=== PATIENT | female | born 1980 | race Caucasian/White ===

== ENCOUNTER → 2018-04-26 11:06 | Outpatient (CLI) | payer OTHER, SELFPAY ==
[2018-04-26 13:02] LABS: Alanine Aminotransferase 35 IU/L (9-52); Albumin 4.8 g/dL (3.5-5.0); Albumin Globulin Ratio 1.6 (1.0-2.8); Alkaline Phosphatase 42 U/L (38-126); Aspartate Aminotransferase 28 IU/L (14-36); BUN Creatinine Ratio 18.8 (6-22); Bilirubin Total 0.5 mg/dL (0.2-1.3); Blood Urea Nitrogen 15 mg/dL (7-17); Calcium 9.9 mg/dL (8.4-10.2); Carbon Dioxide 26 mmol/L (22-32); Chloride 101 mmol/L (98-107); Cholesterol 240 mg/dL (140-199); Estimated Glomerular Filt Rate > 60.0 mL/min (>60); Glucose 82 mg/dL (70-100); HDL Cholesterol 61 mg/dL (40-60); HEMOLYSIS < 15 (0-50); LDL Cholesterol Calculated 153 mg/dL (<100); Potassium 4.8 mmol/L (3.4-5.1); Sodium 142 mmol/L (137-145); Total Protein 7.8 g/dL (6.3-8.2); Triglycerides 129 mg/dL (35-150)
[2018-04-26 13:51] LABS: Creatinine Urine Random 32.6 mg/dL
[2018-04-26 13:57] LABS: Microalbumi Creatinin Ratio Ur 18.4 ug/mg CR (<30); Microalbumin Urine Random < 0.6 mg/dL (0-1.6)
== END ==
PROVIDERS: Family Provider Physician Assistant; PCP Physician Assistant; Visit Provider Physician Assistant
DX: I10 Essential (primary) hypertension (principal)
CPT/HCPCS: 36415; 80053; 80061; 82043; 82570

== ENCOUNTER → 2018-05-24 10:12 | Outpatient (CLI) | payer OTHER, SELFPAY ==
--- NOTE | 2018-05-24 10:15 | DI.RAD.S_ITS ---
PROCEDURE: XR TOE LT MIN 2V INDICATIONS: Left 5th toe pain and swelling TECHNIQUE: 3 views of the left fifth toe(s) acquired. COMPARISON: None. FINDINGS: Bones: No fractures or dislocations. No suspicious bony lesions. Soft tissues: A subtle, focal radiopacity is present within the soft tissues of the left fifth digit. It is unclear whether this may represent a small foreign body. IMPRESSION: Questionable subtle focal radiopacity within the soft tissues of the left fifth digit which may represent a retained foreign body. Dictated by: Mei Amor M.D. on 05/24/2018 at 10:31 Approved by: Mei Amor M.D. on 05/24/2018 at 10:32
== END ==
PROVIDERS: PCP Physician Assistant; Visit Provider Physician Assistant
DX: M79.675 Pain in left toe(s) (principal)
CPT/HCPCS: 73660

== ENCOUNTER 2018-05-24 23:16 | Emergency (ER) | payer OTHER, SELFPAY ==
[2018-05-24 23:21] VITALS: BP 141/97; PULSE 108; RESP 16; TEMP 36.4; O2SAT 100; BMI 29.2
--- NOTE | 2018-05-25 00:18 | ED_ITS ---
HPI - Extremity Injury (Lower) General Chief Complaint: Extremity Injury, Lower Stated Complaint: left foot infection line going up leg Time Seen by Provider: 05/24/18 23:56 Source: patient and old records reviewed Mode of arrival: ambulatory Limitations: no limitations History of Present Illness HPI Narrative: Patient is a 37-year-old female who presents with left toe infection and redness. She said she stepped on a very tiny piece of glass 2 nights ago that was removed by the walk-in clinic today and she was started on Keflex. She has had 2 doses of Keflex as she had some streaking up her foot however the streaking has quickly progressed to mid lower leg. She has had low- grade fever. She says that he got all the glass out. Related Data Home Medications Medication Instructions Recorded Confirmed Lamotrigine See Label Instructions .ROUTE 04/25/18 05/24/18 .COMPLEX Previous Rx's Medication Instructions Recorded [Massage Therapy] ea QMONTH #1 03/01/17 tramadol 50 - 100 mg PO Q6HP PRN #60 tab 03/05/17 gabapentin 300 mg capsule See Label Instructions .ROUTE 01/02/18 .COMPLEX #90 cap cyclobenzaprine 10 mg PO HSP PRN #30 tab 03/22/18 lorazepam 0.5 mg tablet 0.5 mg PO QDAY PRN #10 tab 04/16/18 methylphenidate ER 18 mg 18 mg PO QAM #30 tab 04/16/18 tablet,extended release 24 hr methylphenidate ER 18 mg 18 mg PO QAM #30 tab 04/16/18 tablet,extended release 24 hr methylphenidate ER 18 mg 18 mg PO QDAY #30 tab 04/16/18 tablet,extended release 24 hr hydrochlorothiazide 12.5 mg tablet 12.5 mg PO DAILY #30 tab 04/25/18 lisinopril 5 mg tablet 5 mg PO DAILY #30 tab 04/25/18 norethindrone ac-eth estradiol 1 tab PO Q DAY #1 pac 04/29/18 [Loestrin 1.5/ (21)] lamotrigine 100 mg tablet 150 mg PO DAILY #45 tab 05/03/18 atorvastatin 20 mg tablet 20 mg PO BEDTIME #45 tab 05/05/18 trazodone 100 mg tablet 50 - 100 mg PO HS #30 tab 09/24/18 cephalexin 500 mg capsule 500 mg PO QID 7 Days #28 cap 05/24/18 clindamycin HCl 300 mg PO QID #28 cap 05/25/18 Allergies Allergy/AdvReac Type Severity Reaction Status Date / Time etonogestrel [From NUVARING] AdvReac Severe suicidal Verified 05/24/18 23:21 thoughts clarithromycin [From BIAXIN] AdvReac Intermediate vomiting Verified 05/24/18 23: 21 nitrofurantoin AdvReac Intermediate HIVES, Verified 05/24/18 23:21 [From MACROBID] WELTS, BURNING SENSATION ON LIPS & TONGUE Review of Systems Review of Systems All systems reviewed & are unremarkable except as noted in HPI and below Constitutional Denies chills, Reports fever(s), Denies frequent falls and Denies weakness Cardiovascular Denies chest pain, Denies irregular heart rhythm, Denies lightheadedness, Denies palpitations, Denies dyspnea, Denies dyspnea on exertion and Denies orthopnea Respiratory Denies cough, Denies dyspnea, Denies dyspnea on exertion and Denies wheezing Gastrointestinal Gastrointestinal: Denies abdominal pain, Denies change in bowel habits, Denies diarrhea, Denies nausea and Denies vomiting Musculoskeletal Reports as per HPI Integumentary/Breasts Reports as per HPI and Reports erythema Neurologic Denies frequent falls and Denies weakness Endocrine Denies palpitations Allergic/Immunologic Denies wheezing PFSH Medical History ADHD (attention deficit hyperactivity disorder) (Chronic) Bipolar disorder (Chronic) Depression (Chronic) Fibromyalgia (Chronic) GERD (gastroesophageal reflux disease) (Chronic) Migraines (Chronic) Psoriasis (Chronic) Low back pain (Resolved ~11/2017) Surgical History No history of previous surgery (Resolved) Family History Family/Other Adopted Social History Smoking Status: Former smoker Tobacco: How many years used: 3 second hand exposure: No alcohol intake: current substance use type: does not use Exam Initial Vital Signs Initial Vital Signs: Vital Signs Temperature 97.6 F 05/24/18 23:21 Pulse Rate 108 H 05/24/18 23:21 Respiratory Rate 16 05/24/18 23:21 Blood Pressure 141/97 H 05/24/18 23:21 Pulse Oximetry 100 05/24/18 23:21 GENERAL: Well-appearing, well-nourished and in no acute distress. CARDIOVASCULAR: peripheral pulses in tact, cap refill <2 sec RESPIRATORY: No respiratory distress, speaks in full sentences without difficulty [ABDOMEN: Soft, nontender, no guarding or rebound] EXTREMITIES: Normal range of motion, no clubbing or edema. Neurovascularly intact NEUROLOGICAL: Cranial nerves II through XII grossly intact. Normal gait and speech. SKIN: Left little toe erythematous with obvious streaking across midfoot and faint line seen up to the mid leg. Course Orders Ordered: ED Orders 05/25/18 00:28 Basic Metabolic Panel Stat Complete Blood Count AUTO DIFF Stat Lactate (Lactic Acid) Stat Procalcitonin Stat 05/25/18 00:45 Blood Culture Stat Discontinued Medications Clindamycin Phosphate (Cleocin) 600 mg in 50 mls @ 50 mls/hr IV NOW ONE Stop: 05/25/18 01:10 Last Infusion: 05/25/18 02:00 Dose: 50 mls/hr Admin: 05/25/18 00:40 Dose: 50 mls/hr Vital Signs - 8 hr 05/24/18 23:21 05/25/18 02:32 Temperature 97.6 F 98.7 F Pulse Rate 108 H 95 H Respiratory Rate 16 15 Blood Pressure 141/97 H 122/86 Pulse Oximetry 100 100 MDM - Extremity Injury (Lower) Lab Data Attestation: I reviewed the patient's lab results. Result diagrams: 05/25/18 00:28 05/25/18 00:28 Lab Results 05/25/18 05/25/18 05/25/18 Range/Units 00:28 00:28 00:28 WBC 7.7 (4.5-11.0) X10^3/uL RBC 4.70 (4.0-5.2) X10^6/uL Hgb 14.4 (12.0-16.0) g/dL Hct 42.0 (36-46) % MCV 89.4 (80-100) fL MCH 30.7 (26-34) PG MCHC 34.3 (30-36) % RDW 11.9 (11.6-14.8) % Plt Count 326 (150-400) X10^3/uL Neut % (Auto) 65.8 (50-75) % Lymph % (Auto) 26.9 (25-40) % Carolina % (Auto) 6.4 (3-14) % Eos % (Auto) 0.7 L (2-4) % Baso % (Auto) 0.2 (0-2) % Neut # (Auto) 5100 (3424-9617) /uL Sodium 139 (137-145) mmol/L Potassium 3.7 (3.4-5.1) mmol/L Chloride 99 (98-107) mmol/L Carbon Dioxide 28 (22-32) mmol/L BUN 12 (7-17) mg/dL Creatinine 0.70 (0.52-1.04) mg/dL Estimated GFR > 60.0 (>60) mL/min BUN/Creatinine Ratio 17.1 (6-22) Glucose 110 H (70-100) mg/dL Lactate (0.7-2.1) mmol/L Calcium 10.0 (8.4-10.2) mg/dL Procalcitonin 0.06 (<0.5) ng/mL 05/25/18 Range/Units 00:28 WBC (4.5-11.0) X10^3/uL RBC (4.0-5.2) X10^6/uL Hgb (12.0-16.0) g/dL Hct (36-46) % MCV (80-100) fL MCH (26-34) PG MCHC (30-36) % RDW (11.6-14.8) % Plt Count (150-400) X10^3/uL Neut % (Auto) (50-75) % Lymph % (Auto) (25-40) % Carolina % (Auto) (3-14) % Eos % (Auto) (2-4) % Baso % (Auto) (0-2) % Neut # (Auto) (8231-2108) /uL Sodium (137-145) mmol/L Potassium (3.4-5.1) mmol/L Chloride (98-107) mmol/L Carbon Dioxide (22-32) mmol/L BUN (7-17) mg/dL Creatinine (0.52-1.04) mg/dL Estimated GFR (>60) mL/min BUN/Creatinine Ratio (6-22) Glucose (70-100) mg/dL Lactate 0.7 (0.7-2.1) mmol/L Calcium (8.4-10.2) mg/dL Procalcitonin (<0.5) ng/mL MDM Narrative Medical decision making narrative: She does not seem toxic or septic. She is awake alert she did feel little nauseated after clindamycin. As she likely needs MRSA coverage and longer on antibiotics. She has not yet been on antibiotics for 24 hr. She will return tomorrow for evaluation. Discharge Plan Departure Patient Disposition: Home Clinical Impression: Cellulitis of fifth toe of left foot Discharge Date/Time: 05/25/18 02:34 Interventions: ED Discharge Assessment Last Done: 05/25/18 02:32 Instructions: DI for Cellulitis -- Adult Activity Restrictions/Additional Instructions: *You have been diagnosed with cellulitis *What to do: Return tomorrow for re-evaluation, possible admission *Continue to take medications as directed -clindamycin 300mg 4 times a day-fax to [facility] in [place] -STOP cephalexin *Follow up with your primary care provider in 2-3 days *Return to ER if you should have worsening redness, fever, or any new, worsening or concerning symptoms Prescriptions: New clindamycin HCl 300 mg capsule 300 mg PO QID Qty: 28 RF: 0 No Action Lamotrigine See Patient Comments .ROUTE .COMPLEX RF: 0 lisinopril 5 mg tablet 5 mg PO DAILY Qty: 30 RF: 0 hydrochlorothiazide 12.5 mg tablet 12.5 mg PO DAILY Qty: 30 RF: 1 cephalexin [Keflex] 500 mg capsule 500 mg PO QID 7 Days Qty: 28 RF: 0 lorazepam [Ativan] 0.5 mg tablet 0.5 mg PO QDAY PRN (Reason: panic attack(s)) Qty: 10 RF: 2 methylphenidate HCl [Concerta] 18 mg tablet extended release 24hr 18 mg PO QAM Qty: 30 RF: 0 methylphenidate HCl [Concerta] 18 mg tablet extended release 24hr 18 mg PO QAM Qty: 30 RF: 0 methylphenidate HCl 18 mg tablet extended release 24hr 18 mg PO QDAY Qty: 30 RF: 0 [Massage Therapy] QMONTH Qty: 1 RF: 12 tramadol 50 MG tablet 50 - 100 mg PO Q6HP PRNQty: 60 RF: 0 gabapentin [Neurontin] 300 mg capsule See Label Instructions .ROUTE .COMPLEX Qty: 90 RF: 2 cyclobenzaprine 10 mg tablet 10 mg PO HSP PRNQty: 30 RF: 1 norethindrone ac-eth estradiol [Loestrin 1.5 (21)] 1.5-30 mg-mcg tablet 1 tab PO Q DAY Qty: 1 RF: 11 lamotrigine 100 mg tablet 150 mg PO DAILY Qty: 45 RF: 2 atorvastatin 20 mg tablet 20 mg PO BEDTIME Qty: 45 RF: 1 trazodone 100 mg tablet 50 - 100 mg PO HS Qty: 30 RF: 2 Referrals: Lindsey Denis PA-C [Primary Care Provider] -
[2018-05-25] MEDS: CLINDAMYCIN 600 MG/50 ML PIGGYBACK 50 MG IV (00:40)
[2018-05-25 00:42] LABS: Add Manual Diff / Slide Review NO; Basophils Percent Auto 0.2 % (0-2); Eosinophils Percent Auto 0.7 % (2-4); Hemoglobin 14.4 g/dL (12.0-16.0); Lymphocytes Percent Auto 26.9 % (25-40); Mean Corpuscular HGB Conc 34.3 % (30-36); Mean Corpuscular Hemoglobin 30.7 PG (26-34); Mean Corpuscular Volume 89.4 fL (80-100); Monocytes Percent Auto 6.4 % (3-14); Neutrophils Absolute Auto 5100 /uL (3000-5900); Neutrophils Percent Auto 65.8 % (50-75); Platelet Count 326 X10^3/uL (150-400); Red Cell Distribution Width 11.9 % (11.6-14.8); White Blood Cell Count 7.7 X10^3/uL (4.5-11.0)
[2018-05-25 00:50] LABS: Lactate (Lactic Acid) 0.7 mmol/L (0.7-2.1)
[2018-05-25 00:53] LABS: BUN Creatinine Ratio 17.1 (6-22); Blood Urea Nitrogen 12 mg/dL (7-17); Carbon Dioxide 28 mmol/L (22-32); Chloride 99 mmol/L (98-107); Estimated Glomerular Filt Rate > 60.0 mL/min (>60); Glucose 110 mg/dL (70-100); HEMOLYSIS < 15 (0-50); Potassium 3.7 mmol/L (3.4-5.1); Sodium 139 mmol/L (137-145)
[2018-05-25 01:09] LABS: Procalcitonin 0.06 ng/mL (<0.5)
[2018-05-25 02:32] VITALS: BP 122/86; PULSE 95; RESP 15; TEMP 37.1; O2SAT 100
--- NOTE | 2018-05-25 13:11 | PC.NURSE ---
Pt returned to ED for recheck of Left 5th toe infection. Dr. Gresham told pt she did not have to check in and to have simple wound check by RN. Left toe is less swollen per pt report. Redness has receded. Pain is improved. Denies fever / chills. Has started po abx w/o difficulty except that known eczema is worsening. Pt is overall improved. Encouraged to f/u as needed and indicated and come back for s/s of worsening infection, worsening rash or any other difficulty.
== END 2018-05-25 02:34 | disposition home or self-care (01) ==
PROVIDERS: Emergency Provider Emergency Medicine; Family Provider Physician Assistant; PCP Physician Assistant
DX: L03.032 Cellulitis of left toe (principal)
CPT/HCPCS: 36591; 73660; 80048; 83605; 84145; 85025; 87040; 96365; 96366; 99283; 99284

== ENCOUNTER → 2018-06-18 16:50 | Outpatient (CLI) | payer OTHER, SELFPAY | PROVIDERS: Family Provider Physician Assistant; PCP Physician Assistant; Visit Provider Physician Assistant | DX: N89.8 Other specified noninflammatory disorders of vagina (principal); N90.9 Noninflammatory disorder of vulva and perineum, unspecified; Z20.2 Contact with and (suspected) exposure to infections with a predominantly sexual mode of transmission | CPT/HCPCS: 87255 ==

== ENCOUNTER → 2018-07-16 15:00 | Outpatient (CLI) | payer OTHER, SELFPAY | PROVIDERS: Family Provider Physician Assistant; PCP Physician Assistant | DX: Z23 Encounter for immunization (principal) | CPT/HCPCS: 90471; 90686 ==

== ENCOUNTER → 2018-09-11 09:28 | Outpatient (CLI) | payer OTHER, SELFPAY ==
--- NOTE | 2018-11-01 16:08 | P.HOLT.S_ITS ---
Aerospace Engineer Officer Armament Report Referral & Results Date Patient Seen: 09/11/18 Requesting provider: Lindsey Denis Indication: Palpitations Duration of monitoring (days): 14 Diary information: Patient had 4 diary entries associated with sinus rhythm Patient had 10 triggered events associated with sinus rhythm and PACs Data: Minimum heart rate was 71 beats per minute at 00:21 on 09/17/2018 Maximum heart rate was 181 beats per minute at 14:03 on 09/15/2018 Less than 1% of identified beats were supraventricular ectopic in origin No ventricular ectopic beats were identified Impression: Patient with rare PACs that may well be a source of patient's symptoms based on patient triggered events. Clinical correlation suggested
== END ==
PROVIDERS: Family Provider Physician Assistant; PCP Physician Assistant; Visit Provider Physician Assistant
DX: R00.2 Palpitations (principal)
CPT/HCPCS: 0296T; 0298T

== ENCOUNTER → 2018-10-12 13:01 | Outpatient (CLI) | payer OTHER, SELFPAY ==
--- NOTE | 2018-10-12 13:07 | DI.RAD.S_ITS ---
PROCEDURE: XR FOREARM RT 2V INDICATIONS: R/O Fx TECHNIQUE: 2 views of the forearm were acquired. COMPARISON: [facility], CR, WRIST MINIMUM 3 VIEWS RIGHT, 10/27/2014, 10:51. [facility], MR, WRIST WITH CONTRAST, 01/26/2016, 14:47. FINDINGS: Bones: No acute fractures or dislocations. There is an old on unified right ulnar styloid fracture versus accessory ossicle. Soft tissues: No suspicious soft tissue calcifications or masses. IMPRESSION: No acute radiographic findings. If pain persists, repeat study in 5-7 days is recommended to exclude occult fracture. Dictated by: Mei Amor M.D. on 10/12/2018 at 13:44 Approved by: Mei Amor M.D. on 10/12/2018 at 13:46
== END ==
PROVIDERS: Family Provider Physician Assistant; PCP Physician Assistant; Visit Provider Physician Assistant
DX: M79.601 Pain in right arm (principal)
CPT/HCPCS: 73090

== ENCOUNTER → 2018-11-05 11:58 | Outpatient (CLI) | payer OTHER, SELFPAY ==
[2018-11-05 12:37] LABS: Influenza A and B by PCR Rapid Negative (Negative)
== END ==
PROVIDERS: Family Provider Physician Assistant; PCP Physician Assistant; Visit Provider Physician Assistant
DX: Z20.828 Contact with and (suspected) exposure to other viral communicable diseases (principal)
CPT/HCPCS: 87400

== ENCOUNTER → 2019-04-04 16:41 | Outpatient (CLI) | payer OTHER, SELFPAY ==
--- NOTE | 2019-04-04 16:43 | DI.RAD.S_ITS ---
PROCEDURE: XR SHOULDER RT MIN 2V INDICATIONS: right shoulder pain TECHNIQUE: 3 views of the shoulder were acquired. COMPARISON: None. FINDINGS: Bones: No fractures or dislocations. No suspicious bony lesions. Visualized ribs appear intact. Glenohumeral degenerative spurring Soft tissues: No suspicious soft tissue calcifications. IMPRESSION: Mild degenerative changes. If the patient's pain or other symptoms persist, consider further evaluation with MRI Dictated by: Mckay Negro M.D. on 04/04/2019 at 17:31 Approved by: Mckay Negro M.D. on 04/04/2019 at 17:33
== END ==
PROVIDERS: Family Provider Physician Assistant; PCP Physician Assistant; Visit Provider Nurse Practitioner Family
DX: M25.511 Pain in right shoulder (principal)
CPT/HCPCS: 73030

== ENCOUNTER → 2019-06-19 15:15 | Outpatient (CLI) | payer OTHER, SELFPAY ==
--- NOTE | 2019-06-19 15:18 | DI.RAD.S_ITS ---
PROCEDURE: XR SACROILIAC JOINT MIN 3V INDICATIONS: Possible ankylosing spondylitis TECHNIQUE: 3 views of the sacroiliac joints were acquired. COMPARISON: [facility], , SACROILIAC JOINTS 3 OR MORE VW, 12/25/2013, 13:41. FINDINGS: Bones: No bony erosions or ankylosis. No suspicious bony lesions. No fractures. Soft tissues: Overlying bowel gas pattern is normal. No suspicious soft tissue densities. IMPRESSION: Normal radiographic appearance of the sacroiliac joints bilaterally. Dictated by: Mckay Negro M.D. on 06/19/2019 at 17:12 Approved by: Mckay Negro M.D. on 06/19/2019 at 17:13
== END ==
PROVIDERS: PCP Physician Assistant; Visit Provider Physician Assistant
DX: M53.3 Sacrococcygeal disorders, not elsewhere classified (principal); G89.29 Other chronic pain
CPT/HCPCS: 72202

== ENCOUNTER → 2019-06-23 09:51 | Outpatient (CLI) | payer OTHER, SELFPAY ==
[2019-06-23 10:57] LABS: Add Manual Diff / Slide Review NO; Basophils Absolute Auto 0 /uL (0-100); Basophils Percent Auto 0.3 % (0-2); Eosinophils Absolute Auto 100 /uL (0-450); Eosinophils Percent Auto 1.1 % (2-4); Hematocrit 39.3 % (36-46); Hemoglobin 13.5 g/dL (12.0-16.0); Lymphocytes Absolute Auto 2500 /uL (1100-4500); Lymphocytes Percent Auto 31.8 % (25-40); Mean Corpuscular HGB Conc 34.5 % (30-36); Mean Corpuscular Volume 89.7 fL (80-100); Monocytes Absolute Auto 400 /uL (0-900); Monocytes Percent Auto 5.4 % (3-14); Neutrophils Absolute Auto 4800 /uL (1500-7000); Neutrophils Percent Auto 61.4 % (50-75); Platelet Count 284 X10^3/uL (150-400); Red Blood Cell Count 4.37 X10^6/uL (4.0-5.2); Red Cell Distribution Width 11.9 % (11.6-14.8); White Blood Cell Count 7.9 X10^3/uL (4.5-11.0)
[2019-06-23 11:11] LABS: Erythrocyte Sedimentation Rate 14 MM/HR (0-20)
[2019-06-23 12:14] LABS: Creatinine Urine Random 40.2 mg/dL
[2019-06-23 12:20] LABS: Urine N gonorrhoeae NOT DETECTED
[2019-06-23 12:23] LABS: Microalbumi Creatinin Ratio Ur 14.9 ug/mg CR (<30); Microalbumin Urine Random < 0.6 mg/dL (0-1.6)
[2019-06-23 12:43] LABS: Alanine Aminotransferase 28 IU/L (<35); Albumin 4.4 g/dL (3.5-5.0); Albumin Globulin Ratio 1.6 (1.0-2.8); Alkaline Phosphatase 50 U/L (38-126); Aspartate Aminotransferase 28 IU/L (14-36); BUN Creatinine Ratio 13.8 (6-22); Bilirubin Total 0.4 mg/dL (0.2-1.3); Blood Urea Nitrogen 11 mg/dL (7-17); C-Reactive Protein Quant 1.8 mg/dL (<1.0); Calcium 9.9 mg/dL (8.4-10.2); Carbon Dioxide 27 mmol/L (22-32); Chloride 102 mmol/L (98-107); Cholesterol 189 mg/dL (140-199); Estimated Glomerular Filt Rate > 60.0 mL/min (>60); Globulin 2.8 g/dL (1.7-4.1); Glucose 97 mg/dL (70-100); HDL Cholesterol 45 mg/dL (40-60); HEMOLYSIS < 15 (0-50); LDL Cholesterol Calculated 109 mg/dL (<100); Potassium 4.8 mmol/L (3.4-5.1); Sodium 139 mmol/L (137-145); Total Protein 7.2 g/dL (6.3-8.2); Triglycerides 176 mg/dL (35-150)
[2019-06-23 13:01] LABS: Rheumatoid Factor < 8.6 IU/mL (<12.0)
[2019-06-23 13:05] LABS: Urine Chlamydia NOT DETECTED
[2019-06-25 16:53] LABS: HLA B27 NEGATIVE (Negative)
== END ==
PROVIDERS: PCP Physician Assistant; Visit Provider Physician Assistant
DX: M25.50 Pain in unspecified joint (principal); M35.9 Systemic involvement of connective tissue, unspecified; E78.5 Hyperlipidemia, unspecified; I10 Essential (primary) hypertension; Z20.2 Contact with and (suspected) exposure to infections with a predominantly sexual mode of transmission
CPT/HCPCS: 36415; 80053; 80061; 82043; 82570; 85025; 85651; 86140; 86430; 86812; 87491; 87591

== ENCOUNTER → 2019-07-07 09:07 | Outpatient (CLI) | payer OTHER, SELFPAY | PROVIDERS: PCP Physician Assistant | DX: Z23 Encounter for immunization (principal) | CPT/HCPCS: 90471; 90686 ==

== ENCOUNTER → 2019-08-12 13:46 | Outpatient (CLI) | payer OTHER, SELFPAY ==
--- NOTE | 2019-08-12 14:22 | DI.RAD.S_ITS ---
PROCEDURE: XR KNEE RT 3V INDICATIONS: Right knee pain - please do one weight bearing view TECHNIQUE: 3 views of the knee were acquired. COMPARISON: None. FINDINGS: Bones: No fractures or dislocations. No suspicious bony lesions. Mild degenerative joint disease with small periarticular osteophytes and mild joint space narrowing. Soft tissues: No joint effusion. No suspicious soft tissue calcifications. IMPRESSION: 1. Mild degenerative joint disease. Dictated by: Meredith Underwood M.D. on 08/12/2019 at 17:16 Approved by: Meredith Underwood M.D. on 08/12/2019 at 17:18
== END ==
PROVIDERS: PCP Physician Assistant; Visit Provider Physician Assistant
DX: M25.561 Pain in right knee (principal); M17.11 Unilateral primary osteoarthritis, right knee
CPT/HCPCS: 73562

== ENCOUNTER → 2019-10-30 10:33 | Outpatient (CLI) | payer OTHER, SELFPAY ==
--- NOTE | 2019-11-28 15:27 | PM.CARDMON.1 ---
Pamphlet Distributor Report Referral & Results Date Patient Seen: 10/30/19 Requesting provider: Davion Way Indication: Supraventricular tachycardia Duration of monitoring (days): 14 Diary information: There were 24 patient triggered events and no patient diary entries Triggered events were associated variably with sinus rhythm and PACs Data: Minimum heart rate identified was 64 beats per minute at 08:05 on 11/01/2019 Maximum heart rate was 167 beats per minute at 13:16 on 11/04/2019 Less than 1% of identified beats rather ventricular supraventricular ectopic in origin No SVT or other dysrhythmias identified on this study Impression: Normal 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
== END ==
PROVIDERS: PCP Physician Assistant; Referring Provider Family Medicine; Visit Provider Family Medicine
DX: I47.1 Supraventricular tachycardia (principal)
CPT/HCPCS: 0296T; 0298T

== ENCOUNTER → 2020-02-19 09:27 | Outpatient (CLI) | payer OTHER, SELFPAY ==
[2020-02-20 09:58] LABS: COVID19 Sendout Not Detected (Not Detect)
== END ==
PROVIDERS: PCP Family Medicine; Visit Provider Physician Assistant
DX: J02.9 Acute pharyngitis, unspecified (principal); R05 Cough; R53.83 Other fatigue
CPT/HCPCS: 87635

== ENCOUNTER → 2020-06-01 14:56 | Outpatient (CLI) | payer OTHER, SELFPAY ==
[2020-06-03 16:26] LABS: Candida species Negative (Negative); Gardnerella vaginalis Negative (Negative); Trichomoas vaginalis Negative (Negative)
== END ==
PROVIDERS: PCP Family Medicine; Visit Provider Obstetrics & Gynecology
DX: N76.0 Acute vaginitis (principal); B96.89 Other specified bacterial agents as the cause of diseases classified elsewhere
CPT/HCPCS: 87480; 87510; 87660

== ENCOUNTER → 2020-07-16 | Outpatient (CLI) | payer OTHER, SELFPAY | PROVIDERS: PCP Registered Nurse; Referring Provider Internal Medicine; Visit Provider Internal Medicine | DX: Z23 Encounter for immunization (principal) | CPT/HCPCS: 90471; 90686 ==

== ENCOUNTER → 2020-07-19 15:09 | Outpatient (CLI) | payer OTHER, SELFPAY | PROVIDERS: PCP Registered Nurse; Visit Provider Obstetrics & Gynecology | DX: N76.0 Acute vaginitis (principal) | CPT/HCPCS: 87070; 87205 ==

== ENCOUNTER → 2020-08-16 13:50 | Outpatient (CLI) | payer OTHER, SELFPAY ==
[2020-08-16 16:12] LABS: COVID19 -Nasal RAPID Negative (Negative)
== END ==
PROVIDERS: PCP Registered Nurse; Visit Provider Physician Assistant
DX: Z20.822 Contact with and (suspected) exposure to COVID-19 (principal)
CPT/HCPCS: 87635

== ENCOUNTER → 2020-08-19 12:31 | Outpatient (CLI) | payer OTHER, SELFPAY ==
[2020-08-19 12:59] LABS: COVID19 -Nasal RAPID Negative (Negative)
== END ==
PROVIDERS: PCP Registered Nurse; Visit Provider Physician Assistant
DX: R51.9 Headache, unspecified (principal); R53.83 Other fatigue; Z20.822 Contact with and (suspected) exposure to COVID-19
CPT/HCPCS: 87635

== ENCOUNTER → 2020-10-14 19:43 | Outpatient (CLI) | payer OTHER, SELFPAY ==
--- NOTE | 2020-10-14 19:46 | DI.MRI.S_ITS ---
PROCEDURE: MR LOWER LEG RT WO CON INDICATIONS: possible gastrocnemius rupture TECHNIQUE: Noncontrast coronal and sagittal T1 spin echo and STIR; axial T1 spin echo and T2 fast spin echo with fat saturation through the right lower leg. COMPARISON: None. FINDINGS: Image quality: Excellent. Bones: The visualized bone marrow demonstrates normal signal on all sequences. The overlying cortex appears intact. No fractures lines or intra-osseous lesions. Soft tissues: There is attenuated appearance and fluid signal within medial portion of inferior medial head of gastrocnemius muscle suggestive of low to moderate grade partial-thickness tear. Lateral head of gastrocnemius muscle is intact. Extensor muscles and soleus muscle are normal in size and signal. Visualized portion of Achilles tendon is intact. No soft tissue masses are present. IMPRESSION: 1. Low to moderate grade partial-thickness tear involving medial portion of mid to lower medial head of gastrocnemius muscle extending to musculotendinous junction. No full-thickness muscle or tendon rupture. 2. No marrow signal abnormality. No suspicious intraosseous lesion. 3. Achilles tendon is intact. Dictated by: Krishna Montano M.D. on 10/15/2020 at 9:20 Approved by: Krishna Montano M.D. on 10/15/2020 at 9:22
== END ==
PROVIDERS: PCP Registered Nurse; Referring Provider Physician Assistant; Visit Provider Physician Assistant
DX: S86.111A Strain of other muscle(s) and tendon(s) of posterior muscle group at lower leg level, right leg, initial encounter (principal); X58.XXXA Exposure to other specified factors, initial encounter
CPT/HCPCS: 73718

== ENCOUNTER → 2020-12-16 08:58 | Outpatient (CLI) | payer OTHER, SELFPAY ==
[2020-12-16 09:21] LABS: Add Manual Diff / Slide Review NO; Basophils Absolute Auto 0 /uL (0-100); Basophils Percent Auto 0.4 % (0-2); Eosinophils Absolute Auto 100 /uL (0-450); Eosinophils Percent Auto 1.5 % (2-4); Hematocrit 41.6 % (36-46); Hemoglobin 14.1 g/dL (12.0-16.0); Lymphocytes Absolute Auto 1800 /uL (1100-4500); Lymphocytes Percent Auto 25.2 % (25-40); Mean Corpuscular HGB Conc 33.9 % (30-36); Mean Corpuscular Hemoglobin 31.5 PG (26-34); Mean Corpuscular Volume 93.1 fL (80-100); Monocytes Absolute Auto 300 /uL (0-900); Monocytes Percent Auto 4.6 % (3-14); Neutrophils Absolute Auto 4900 /uL (1500-7000); Neutrophils Percent Auto 68.3 % (50-75); Platelet Count 297 X10^3/uL (150-400); Red Blood Cell Count 4.47 X10^6/uL (4.0-5.2); Red Cell Distribution Width 11.8 % (11.6-14.8); White Blood Cell Count 7.1 X10^3/uL (4.5-11.0)
[2020-12-16 09:43] LABS: Alanine Aminotransferase 24 IU/L (<35); Albumin 4.4 g/dL (3.5-5.0); Albumin Globulin Ratio 1.4 (1.0-2.8); Alkaline Phosphatase 37 U/L (38-126); Aspartate Aminotransferase 28 IU/L (14-36); BUN Creatinine Ratio 10.6 (6-22); Bilirubin Total 0.2 mg/dL (0.2-1.3); Blood Urea Nitrogen 10 mg/dL (7-17); Calcium 9.8 mg/dL (8.4-10.2); Carbon Dioxide 26 mmol/L (22-32); Chloride 104 mmol/L (98-107); Cholesterol 193 mg/dL (140-199); Estimated Glomerular Filt Rate > 60.0 mL/min (>60); Globulin 3.1 g/dL (1.7-4.1); Glucose 97 mg/dL (70-100); HDL Cholesterol 62 mg/dL (40-60); HEMOLYSIS < 15 (0-50); LDL Cholesterol Calculated 106 mg/dL (<100); Potassium 3.9 mmol/L (3.4-5.1); Sodium 139 mmol/L (137-145); Total Protein 7.5 g/dL (6.3-8.2); Triglycerides 127 mg/dL (35-150)
[2020-12-16 10:29] LABS: TSH w/ Reflex to FT4 4.72 uIU/mL (0.47-4.68)
[2020-12-16 10:33] LABS: Ferritin 57 ng/mL (6-137)
[2020-12-16 11:35] LABS: Free T4, Direct Thyroxine 0.99 ng/dL (0.78-2.19)
== END ==
PROVIDERS: Nurse Practitioner Psychiatric/Mental Health; PCP Registered Nurse; Referring Provider Registered Nurse; Visit Provider Registered Nurse
DX: F31.81 Bipolar II disorder (principal); E78.5 Hyperlipidemia, unspecified; I10 Essential (primary) hypertension; F41.0 Panic disorder [episodic paroxysmal anxiety]; F41.1 Generalized anxiety disorder
CPT/HCPCS: 36415; 80053; 80061; 82728; 84439; 84443; 85025

== ENCOUNTER → 2020-12-17 09:23 | Outpatient (CLI) | payer OTHER, SELFPAY ==
[2020-12-17 09:59] LABS: HCG Quantitative /Beta subunit < 2.4 mIU/mL
== END ==
PROVIDERS: PCP Registered Nurse; Visit Provider Registered Nurse
DX: N91.2 Amenorrhea, unspecified (principal)
CPT/HCPCS: 84702

== ENCOUNTER → 2021-02-11 14:18 | Outpatient (CLI) | payer OTHER, SELFPAY ==
[2021-02-12 15:36] LABS: Candida species Negative (Negative); Gardnerella vaginalis Negative (Negative); Trichomoas vaginalis Negative (Negative)
== END ==
PROVIDERS: PCP Registered Nurse; Visit Provider Obstetrics & Gynecology
DX: N89.8 Other specified noninflammatory disorders of vagina (principal)
CPT/HCPCS: 87480; 87510; 87660

== ENCOUNTER → 2021-05-19 12:21 | Outpatient (CLI) | payer OTHER, SELFPAY ==
[2021-05-20 17:44] LABS: Candida species Negative (Negative); Gardnerella vaginalis Negative (Negative); Trichomoas vaginalis Negative (Negative)
[2021-05-21 12:12] LABS: Chlamydia trachomatis Negative (Negative); Mycoplasma genitalium Negative (Negative); Neisseria gonorrhoeae Negative (Negative)
== END ==
PROVIDERS: PCP Registered Nurse; Visit Provider Obstetrics & Gynecology
DX: N89.8 Other specified noninflammatory disorders of vagina (principal); Z11.3 Encounter for screening for infections with a predominantly sexual mode of transmission
CPT/HCPCS: 87480; 87491; 87510; 87563; 87591; 87660

== ENCOUNTER → 2021-07-25 14:53 | Outpatient (CLI) | payer OTHER, SELFPAY ==
[2021-07-25 17:17] LABS: COVID19 -Nasal RAPID Negative (Negative)
== END ==
PROVIDERS: PCP Registered Nurse; Visit Provider Nurse Practitioner Family
DX: Z20.822 Contact with and (suspected) exposure to COVID-19 (principal); R05.9 Cough, unspecified; R09.89 Other specified symptoms and signs involving the circulatory and respiratory systems; R52 Pain, unspecified; R53.83 Other fatigue
CPT/HCPCS: 87635

== ENCOUNTER → 2021-09-20 13:39 | Outpatient (CLI) | payer OTHER, SELFPAY ==
--- NOTE | 2021-09-20 13:42 | DI.MG.S_ITS ---
BILATERAL DIGITAL DIAGNOSTIC MAMMOGRAM 3D/2D: 09/20/2021 CLINICAL: Baseline. Breast pain. No prior exams were available for comparison. The tissue of both breasts is heterogeneously dense. This may lower the sensitivity of mammography. There is a possible oval focal asymmetry with an obscured margin in the left breast at 3 o'clock posterior depth. This correlates to the area of reported pain. No other significant masses, calcifications, or other findings are seen in either breast. IMPRESSION: INCOMPLETE: NEEDS ADDITIONAL IMAGING EVALUATION The possible oval focal asymmetry in the left breast is indeterminate. An ultrasound is recommended. This exam was interpreted at Station ID: [id number]. NOTE: For mammograms, a report in lay terms will be sent to the patient. Approximately 15% of breast malignancies will not be visualized mammographically. In the management of a palpable breast mass, a negative mammogram must not discourage biopsy of a clinically suspicious lesion. Electronically Signed By: Melvin duval/jasmin:09/20/2021 15:00:54 ACR BI-RADS Category 0: Incomplete [id number]
--- NOTE | 2021-09-20 13:42 | DI.US.S_ITS ---
LIMITED ULTRASOUND OF LEFT BREAST: 09/20/2021 CLINICAL: Focal left breast pain. [facility] of the left breast 2-3 o'clock region was performed. Dawson scale images of the real-time examination were reviewed. There is a 0.8 cm x 0.8 cm x 0.6 cm oval cyst with a smooth internal wall in the left breast at 3 o'clock posterior depth 7 cm from the nipple. This oval cyst is hypoechoic with posterior acoustic enhancement. This correlates to the reported pain and with mammography findings. Color flow imaging demonstrates that there is no vascularity present. IMPRESSION: PROBABLY BENIGN The 0.8 cm x 0.8 cm x 0.6 cm oval cyst in the left breast most likely is a complicated cyst and is probably benign. A follow-up left ultrasound in 6 months is recommended to demonstrate stability. This exam was interpreted at Station ID: [id number]. Electronically Signed By: Melvin duval/jasmin:09/20/2021 15:05:54 letter sent: Followup Recommended Ultrasound BI-RADS: 3 Probably benign
== END ==
PROVIDERS: PCP Registered Nurse Diabetes Educator; Referring Provider Obstetrics & Gynecology; Visit Provider Obstetrics & Gynecology
DX: N64.4 Mastodynia (principal); R92.2 Inconclusive mammogram; N60.02 Solitary cyst of left breast
CPT/HCPCS: 76642; 77066; G0279

== ENCOUNTER → 2021-12-16 08:22 | Outpatient (CLI) | payer OTHER, SELFPAY ==
--- NOTE | 2021-12-16 | DI.MRI.S_ITS ---
PROCEDURE: MR KNEE RT WO CON INDICATIONS: Unspecified internal derangement of right knee TECHNIQUE: Noncontrast sagittal PD fast spin echo and T2 fast spin echo with fat saturation, sagittal 3-D FLASH with fat saturation; coronal T1 spin echo and PD fast spin echo with fat saturation, and axial PD fast spin echo with fat saturation through the knee. COMPARISON: [facility], CR, XR KNEE 4+ VIEWS RIGHT, 12/09/2021, 9:47. FINDINGS: Image quality: Excellent. Menisci: The medial and lateral menisci demonstrate normal morphology and internal signal. The meniscal root ligaments appear intact. Cruciate ligaments: The anterior and posterior cruciate ligaments appear intact. Medial structures: The medial collateral ligament appears intact. The posterior oblique ligament, semimembranosus tendon insertions, oblique popliteal ligament, and meniscocapsular junction appear intact. Visualized portions of the pes anserinus tendons appear normal. No abnormal bursal fluid. Lateral structures: The lateral collateral ligament, long and short heads of the biceps femoris tendon appear intact. The popliteus tendon appears normal; the popliteofibular ligament appears intact. The posterosuperior and anteroinferior popliteomeniscal fascicles appear intact. The arcuate and fabellofibular ligaments appear intact, on either side of the lateral inferior geniculate artery. Iliotibial band appears normal. Anterior structures: The quadriceps and patellar tendons appear intact. Patellar alignment is normal. No femoral trochlear dysplasia or ventral trochlear prominence. No edema in the infrapatellar fat pad. Bones and cartilage: No bone marrow contusions or fractures. The cartilage of the medial and lateral femorotibial compartments appears normal in thickness. There is mild thinning of the articular cartilage of the medial patellar facet. Joint space: There is physiologic knee joint fluid. No Rudd's cyst. Normal appearing synovial plicae are incidentally noted. IMPRESSION: 1. Patellar chondromalacia. 2. No internal derangement. Dictated by: Mary Garay MD, PhD on 12/16/2021 at 14:20 Approved by: Mary Garay MD, PhD on 12/19/2021 at 16:00
== END ==
PROVIDERS: PCP Registered Nurse Diabetes Educator; Referring Provider Orthopaedic Surgery; Visit Provider Orthopaedic Surgery
DX: M23.91 Unspecified internal derangement of right knee (principal); M22.41 Chondromalacia patellae, right knee
CPT/HCPCS: 73721

== ENCOUNTER → 2022-02-01 07:24 | Outpatient (CLI) | payer OTHER, SELFPAY ==
--- NOTE | 2022-02-01 07:26 | DI.RAD.S_ITS ---
PROCEDURE: XR FOOT LT MIN 3V INDICATIONS: left big toe joint pain TECHNIQUE: 3 views of the foot were acquired. COMPARISON: None. FINDINGS: Bones: No fractures or dislocations. No suspicious bony lesions. No osseous erosions. Medial bunion noted Soft tissues: No tibiotalar joint effusion. Achilles tendon appears normal. IMPRESSION: Medial bunion. Dictated by: Mary Garay MD, PhD on 02/01/2022 at 9:24 Approved by: Mary Garay MD, PhD on 02/01/2022 at 9:25
[2022-02-01 09:05] LABS: Alanine Aminotransferase 22 IU/L (<35); Albumin 4.7 g/dL (3.5-5.0); Albumin Globulin Ratio 1.6 (1.0-2.8); Alkaline Phosphatase 50 U/L (38-126); Aspartate Aminotransferase 34 IU/L (14-36); BUN Creatinine Ratio 15.6 (6-22); Bilirubin Total 0.3 mg/dL (0.2-1.3); Blood Urea Nitrogen 14 mg/dL (7-17); Calcium 9.4 mg/dL (8.4-10.2); Carbon Dioxide 29 mmol/L (22-32); Chloride 104 mmol/L (98-107); Estimated Glomerular Filt Rate > 60 mL/min (>60); Glucose 77 mg/dL (70-100); HEMOLYSIS < 15 (0-50); Potassium 4.1 mmol/L (3.4-5.1); Sodium 140 mmol/L (137-145); Total Protein 7.7 g/dL (6.3-8.2)
[2022-02-01 09:44] LABS: TSH w/ Reflex to FT4 2.48 uIU/mL (0.47-4.68)
== END ==
PROVIDERS: Psychiatry & Neurology Psychiatry; PCP Registered Nurse Diabetes Educator; Referring Provider Obstetrics & Gynecology; Visit Provider Obstetrics & Gynecology
DX: M79.675 Pain in left toe(s) (principal); R79.89 Other specified abnormal findings of blood chemistry; F31.81 Bipolar II disorder; Z79.899 Other long term (current) drug therapy; M21.612 Bunion of left foot
CPT/HCPCS: 36415; 73630; 80053; 84443; 84550

== ENCOUNTER → 2022-02-10 10:13 | Outpatient (CLI) | payer OTHER, SELFPAY ==
--- NOTE | 2022-02-10 10:14 | DI.RAD.S_ITS ---
PROCEDURE: XR FINGER RT MIN 2V INDICATIONS: eval R 3rd finger mass palmar aspect MCP joint TECHNIQUE: AP hand, 2 views of the 3rd finger(s) acquired. COMPARISON: None. FINDINGS: Bones: No fractures or dislocations. No suspicious bony lesions. There is a well corticated ossicle of the ulnar styloid likely due to a remote fracture. Soft tissues: No suspicious soft tissue calcifications. IMPRESSION: No abnormality identified radiographically of the right 3rd finger. Dictated by: Zeke Russell M.D. on 02/10/2022 at 12:00 Approved by: Zeke Russell M.D. on 02/10/2022 at 12:02
--- NOTE | 2022-02-10 10:14 | DI.US.S_ITS ---
PROCEDURE: US EXTREMELY NONVASC UPPER RT INDICATIONS: RIGHT THIRD FINGER MCP JOINT LUMP TECHNIQUE: Real-time scanning was performed of the right 3rd finger, with image documentation. COMPARISON: None. FINDINGS: Focused ultrasound examination over volar aspect of 3rd digit near MCP joint shows 5 x 3 x 5 mm cystic structure with internal 1.6 mm echogenic focus. No internal vascularity is seen. IMPRESSION: Finding may represent a ganglion cyst over volar aspect of 3rd digit superficial to the flexor tendon near 3rd MCP joint. Dictated by: Krishna Montano M.D. on 02/10/2022 at 12:11 Approved by: Krishna Montano M.D. on 02/10/2022 at 12:12
== END ==
PROVIDERS: PCP Registered Nurse Diabetes Educator; Referring Provider Registered Nurse Diabetes Educator; Visit Provider Registered Nurse Diabetes Educator
DX: M67.441 Ganglion, right hand (principal)
CPT/HCPCS: 73140; 76882

== ENCOUNTER → 2022-03-28 13:06 | Outpatient (CLI) | payer OTHER, SELFPAY ==
--- NOTE | 2022-03-28 13:07 | DI.US.S_ITS ---
PROCEDURE: US BREAST LT LIMITED COMPARISON: [facility], , MM DIAGNOSTIC MAMMO BI, 09/20/2021, 14:17. [facility], , US BREAST LT LIMITED, 09/20/2021, 14:32. INDICATIONS: 6 month f/u US FINDINGS: IMPRESSION: At the time of screening mammogram Dictated by: Zeke Russell M.D. on 03/28/2022 at 13:26 Approved by: Zeke Russell M.D. on 03/28/2022 at 14:02
--- NOTE | 2022-03-28 20:22 | DI.US.S_ITS ---
Procedure: US breast LT limited ULTRASOUND OF LEFT BREAST: 03/28/2022 CLINICAL: Patient returns today to evaluate a focal asymmetry in the left breast. Comparison is made to exams dated: 09/20/2021 ultrasound and 09/20/2021 mammogram - [facility]. Real-time ultrasound of the left breast was performed. Dawson scale images of the real-time examination were reviewed. There is a 0.8 cm x 0.8 cm x 0.6 cm oval cyst with a smooth internal wall in the left breast at 2 o'clock posterior depth 7 cm from the nipple. This oval cyst is hypoechoic with posterior acoustic enhancement. This correlates to the reported pain and with mammography findings. Color flow imaging demonstrates that there is no vascularity present. IMPRESSION: PROBABLY BENIGN The 0.8 cm x 0.8 cm x 0.6 cm oval cyst in the left breast most likely is a complicated cyst and is probably benign. Follow-up mammogram and ultrasound in 6 months is recommended. A follow-up mammogram and an ultrasound in 6 months is recommended to demonstrate stability. This exam was interpreted at Station ID: [id number]. Electronically Signed By: Zeke Russell acr/:03/28/2022 14:01:39 letter sent: Followup Recommended Continued Report - Page 2 of 2 Patient Name: JAKE URRUTIA date: 1980 Sex: F Attending Physician: Katarina Indications: Date: 03/28/2022 13:33 At the request of: DONALD TEAGUE Procedure: US breast LT limited Ultrasound BI-RADS: 3 Probably benign
== END ==
PROVIDERS: PCP Registered Nurse Diabetes Educator; Referring Provider Obstetrics & Gynecology; Visit Provider Obstetrics & Gynecology
DX: R92.8 Other abnormal and inconclusive findings on diagnostic imaging of breast (principal); N60.02 Solitary cyst of left breast
CPT/HCPCS: 76642

== ENCOUNTER → 2022-05-17 11:51 | Outpatient (CLI) | payer OTHER, SELFPAY | PROVIDERS: PCP Registered Nurse Diabetes Educator; Referring Provider Internal Medicine; Visit Provider Internal Medicine | DX: Z23 Encounter for immunization (principal) | CPT/HCPCS: 90471; 90686 ==

== ENCOUNTER → 2022-08-12 09:09 | Outpatient (CLI) | payer OTHER, SELFPAY | PROVIDERS: PCP Registered Nurse Diabetes Educator; Visit Provider Physician Assistant Medical | DX: J02.9 Acute pharyngitis, unspecified (principal) | CPT/HCPCS: 87070 ==

== ENCOUNTER → 2022-08-16 12:12 | Outpatient (CLI) | payer OTHER, SELFPAY ==
[2022-08-16 13:09] LABS: COVID19 -Nasal RAPID Negative (Negative)
== END ==
PROVIDERS: PCP Registered Nurse Diabetes Educator; Visit Provider Nurse Practitioner Family
DX: Z20.822 Contact with and (suspected) exposure to COVID-19 (principal)
CPT/HCPCS: 87635

== ENCOUNTER → 2022-10-06 11:00 | Outpatient (CLI) | payer OTHER, SELFPAY ==
--- NOTE | 2022-10-06 11:01 | DI.RAD.S_ITS ---
PROCEDURE: XR CERVICAL SPINE 2V OR 3V INDICATIONS: neck pain, please do 3V TECHNIQUE: Three view(s) of the cervical spine were acquired. COMPARISON: None. FINDINGS: Bones: No fractures or dislocations to the T1 level. Grade 1 anterolisthesis C4 on five. Disc heights are normally maintained. The lateral masses of C1 appear intact on the odontoid view. No suspicious bony lesions. Soft tissues: No prevertebral soft tissue swelling. IMPRESSION: 1. Grade 1 C4-5 anterolisthesis may be secondary to posture, muscle spasm, or facet degeneration. This can cause central canal or neural foraminal narrowing. Consider MRI. Dictated by: Louise Gonzalez M.D. on 10/06/2022 at 12:49 Approved by: Louise Gonzalez M.D. on 10/06/2022 at 12:50
== END ==
PROVIDERS: PCP Registered Nurse Diabetes Educator; Referring Provider Registered Nurse Diabetes Educator; Visit Provider Registered Nurse Diabetes Educator
DX: M54.2 Cervicalgia (principal); M43.12 Spondylolisthesis, cervical region
CPT/HCPCS: 72040

== ENCOUNTER → 2022-10-20 11:53 | Outpatient (CLI) | payer OTHER, SELFPAY ==
--- NOTE | 2022-10-20 11:54 | DI.MRI.S_ITS ---
PROCEDURE: MR CERVICAL SPINE WO CON INDICATIONS: eval RUE radiculopathy/neck pain/C-spine listhesis TECHNIQUE: Noncontrast sagittal T1 spin echo and T2 fast spin echo, sagittal STIR, foraminal oblique sagittal T2 fast spin echo, and axial gradient echo or T2 fast spin echo through the cervical spine. COMPARISON: None. FINDINGS: Image quality: Excellent. Alignment and Curvature: There is normal bony alignment. Bone Marrow: Marrow demonstrates normal overall signal. Spinal Cord: Visualized spinal cord has normal size and signal. No cerebellar tonsillar herniation. Paraspinous Soft Tissues: No paravertebral masses. Prevertebral soft tissues are normal in thickness. C2-C3: Minimal disc bulge. No canal stenosis. Bilateral facet hypertrophy. No significant foraminal stenosis. C3-C4: Mild disc bulge. No canal stenosis. AP diameter of the canal is 10.2 mm. Left uncovertebral joint hypertrophy plus left facet hypertrophy. Moderate to severe bilateral foraminal narrowing with a mild degree of bilateral L4 foraminal impingement. C4-C5: Mild central posterior disc protrusion indenting on the cord. AP diameter of the canal is 10.2 mm. Right facet hypertrophy with a probable right foraminal facet joint cyst results in moderate to severe right foraminal narrowing and right foraminal C5 nerve root impingement. Left uncovertebral joint hypertrophy and facet hypertrophy results in moderate left foraminal narrowing. C5-C6: Diffuse disc bulge. AP diameter of the canal is 10.6 mm. No significant foraminal stenosis. C6-C7: Minimal disc bulge. AP diameter of the canal is 10.6 mm. Left facet hypertrophy and small left uncovertebral joint osteophyte results in moderate left foraminal narrowing. C7-T1: Minimal disc bulge. No canal stenosis. All bilateral facet hypertrophy results in moderate to severe bilateral foraminal narrowing with a degree of bilateral foraminal C8 nerve root impingement. IMPRESSION: 1. There is no significant canal stenosis in on this study. 2. There is multilevel facet arthropathy and multilevel uncovertebral joint hypertrophy, resulting in multilevel foraminal narrowing as described above. This includes moderate to severe bilateral foraminal narrowing at C3-C4, moderate to severe right foraminal narrowing at C4-C5, and moderate to severe bilateral foraminal narrowing at C7-T1. Dictated by: Kiran Parra M.D. on 10/20/2022 at 13:18 Approved by: Kiran Parra M.D. on 10/20/2022 at 13:30
== END ==
PROVIDERS: PCP Registered Nurse Diabetes Educator; Referring Provider Registered Nurse Diabetes Educator; Visit Provider Registered Nurse Diabetes Educator
DX: M47.22 Other spondylosis with radiculopathy, cervical region (principal); M48.02 Spinal stenosis, cervical region; M54.2 Cervicalgia; M43.12 Spondylolisthesis, cervical region; R29.898 Other symptoms and signs involving the musculoskeletal system; R20.2 Paresthesia of skin
CPT/HCPCS: 72141

== ENCOUNTER → 2023-02-22 11:59 | Outpatient (CLI) | payer OTHER, SELFPAY ==
[2023-02-23 12:22] LABS: Candida species Negative (Negative); Gardnerella vaginalis Positive (Negative); Trichomoas vaginalis Negative (Negative)
== END ==
PROVIDERS: PCP Registered Nurse Diabetes Educator; Visit Provider Specialist
DX: N89.8 Other specified noninflammatory disorders of vagina (principal)
CPT/HCPCS: 87480; 87510; 87660

== ENCOUNTER → 2023-03-23 10:07 | Outpatient (CLI) | payer OTHER, SELFPAY ==
[2023-03-23 11:22] LABS: Hepatitis B Surface Antigen NEGATIVE s/c (NEGATIVE)
[2023-03-23 11:39] LABS: HIV 1 & 2 Ab/Ag 4th Gen Combo NEGATIVE (NEGATIVE); Hep C Virus Ab w/Reflex Quant NEGATIVE s/c (NEGATIVE)
[2023-03-24 07:39] LABS: RPR Screen Non Reactive (Non Reactive)
== END ==
PROVIDERS: PCP Registered Nurse Diabetes Educator; Referring Provider Specialist; Visit Provider Specialist
DX: Z20.2 Contact with and (suspected) exposure to infections with a predominantly sexual mode of transmission (principal); Z11.3 Encounter for screening for infections with a predominantly sexual mode of transmission
CPT/HCPCS: 36415; 86592; 86803; 87340; 87389

== ENCOUNTER → 2023-06-08 12:04 | Outpatient (CLI) | payer OTHER, SELFPAY | PROVIDERS: PCP Registered Nurse Diabetes Educator; Referring Provider Family Medicine; Visit Provider Family Medicine | DX: Z23 Encounter for immunization (principal) | CPT/HCPCS: 90471; 90686 ==

== ENCOUNTER → 2023-07-09 11:22 | Outpatient (CLI) | payer OTHER, SELFPAY ==
[2023-07-10 14:42] LABS: Candida species Negative (Negative); Gardnerella vaginalis Negative (Negative); Trichomoas vaginalis Negative (Negative)
== END ==
PROVIDERS: PCP Registered Nurse Diabetes Educator; Visit Provider Obstetrics & Gynecology
DX: N89.8 Other specified noninflammatory disorders of vagina (principal)
CPT/HCPCS: 87480; 87510; 87660

== ENCOUNTER → 2023-07-16 10:38 | Outpatient (CLI) | payer OTHER, SELFPAY ==
[2023-07-17 14:26] LABS: Candida species Positive (Negative); Gardnerella vaginalis Negative (Negative); Trichomoas vaginalis Negative (Negative)
== END ==
PROVIDERS: PCP Registered Nurse Diabetes Educator; Visit Provider Physician Assistant Medical
DX: N89.8 Other specified noninflammatory disorders of vagina (principal)
CPT/HCPCS: 87070; 87077; 87205; 87480; 87510; 87660

== ENCOUNTER → 2023-07-20 10:23 | Outpatient (CLI) | payer OTHER, SELFPAY ==
--- NOTE | 2023-07-20 10:25 | DI.US.S_ITS ---
PROCEDURE: BREAST LT LIMITED COMPARISON: [facility], BREAST LT LIMITED, 03/28/2022, 13:11. INDICATIONS: 6 month F/U L breast FINDINGS: IMPRESSION: Dictated by: Michelle Baez M.D. on 07/23/2023 at 12:08 Approved by: Michelle Baez M.D. on 07/23/2023 at 13:36
--- NOTE | 2023-07-20 10:25 | DI.MG.S_ITS ---
BILATERAL DIGITAL DIAGNOSTIC MAMMOGRAM 3D/2D: 07/20/2023 CLINICAL: Short term follow up of the left breast, due for bilateral imaging. New onset right breast pain. Comparison is made to exam dated: 09/20/2021 mammogram - [facility]. Both breasts are heterogeneously dense, which may obscure small masses (category c / 51-75% glandular tissue). There is an oval focal asymmetry with an obscured margin in the left breast at 3 o'clock posterior depth, stable since 09/20/2021. Because the patient's right breast symptoms are diffuse, no additional mammographic views are indicated. No other significant masses, calcifications, or other findings are seen in either breast. IMPRESSION: INCOMPLETE: NEEDS ADDITIONAL IMAGING EVALUATION Left breast focal asymmetry at 3 o'clock is stable since 09/20/2021. An ultrasound is recommended for further evaluation and is scheduled to immediately follow this examination. Based on the Tyrer Cuzick model (a risk assessment model) the patient's lifetime risk is 14.6% and her 10 year risk is 2.0%. According to the ACR, ACS, and NCCN guidelines, an annual breast MRI exam along with mammogram is recommended if the patient's lifetime risk is 20% or greater. This exam was interpreted at Station ID: [id number]. NOTE: For mammograms, a report in lay terms will be sent to the patient. Approximately 15% of breast malignancies will not be visualized mammographically. In the management of a palpable breast mass, a negative mammogram must not discourage biopsy of a clinically suspicious lesion. Electronically Signed By: Michelle Baez M.D., PH.D eb/:07/20/2023 11:10:18 ACR BI-RADS Category 0: Incomplete [id number]
--- NOTE | 2023-07-20 11:14 | DI.US.S_ITS ---
Patient Name: JAKE URRUTIA date: 1980 Sex: F Attending Physician: Oscar Indications: Date: 07/23/2023 13:23 At the request of: RENETTA ACUÑA Procedure: US breast LT limited LIMITED ULTRASOUND OF LEFT BREAST: 07/20/2023 CLINICAL: Patient returns today to evaluate a focal asymmetry in the left breast. Comparison is made to exams dated: 07/20/2023 mammogram, 03/28/2022 ultrasound, 09/20/2021 ultrasound, and 09/20/2021 mammogram - [facility]. Ultrasound of the left breast 1-2 o'clock region was performed. There is a 0.6 x 0.7 x 0.7 cm oval hypoechoic mass with circumscribed margins at 2:30 o'clock, 7 cm from the nipple. There is posterior acoustic enhancement. Previously the mass measured 0.8 cm x 0.8 cm x 0.6 cm on 03/28/2023 and 09/20/2021. Color flow imaging demonstrates that there is no vascularity present. IMPRESSION: PROBABLY BENIGN Left breast 0.7 cm oval circumscribed mass at 2:30 o'clock, stable since 09/20/2021. Finding may represent a complicated cyst and is probably benign. Recommend follow-up mammogram and ultrasound in 12 months to demonstrate 2 year stability. Patient will be due for bilateral mammogram at that time. Findings and recommendations were conveyed to the patient during today's evaluation. This exam was interpreted at Station ID: [id number]. Electronically Signed By: Michelle Baez M.D., PH.D eb/:07/23/2023 13:23:15 letter sent: Followup Recommended Continued Report - Page 2 of 2 Patient Name: JAKE URRUTIA date: 1980 Sex: F Attending Physician: Oscar Indications: Date: 07/23/2023 13:23 At the request of: RENETTA ACUÑA Procedure: US breast LT limited Ultrasound BI-RADS: 3 Probably benign
== END ==
PROVIDERS: PCP Registered Nurse Diabetes Educator; Referring Provider Obstetrics & Gynecology; Visit Provider Obstetrics & Gynecology
DX: R92.8 Other abnormal and inconclusive findings on diagnostic imaging of breast (principal); N63.21 Unspecified lump in the left breast, upper outer quadrant; N64.4 Mastodynia
CPT/HCPCS: 76642; 77066; G0279

== ENCOUNTER → 2023-10-19 15:38 | Outpatient (CLI) | payer OTHER, SELFPAY ==
[2023-10-21 15:39] LABS: Candida species Negative (Negative); Gardnerella vaginalis Negative (Negative); Trichomoas vaginalis Negative (Negative)
[2023-11-01 12:12] LABS: Mycoplasma genitalium NEGATIVE
[2023-11-01 12:13] LABS: Chlamydia trachomatis NEGATIVE; Neisseria gonorrhoeae NEGATIVE
== END ==
PROVIDERS: PCP Registered Nurse Diabetes Educator; Visit Provider Obstetrics & Gynecology
DX: N89.8 Other specified noninflammatory disorders of vagina (principal)
CPT/HCPCS: 87480; 87491; 87510; 87563; 87591; 87660

== ENCOUNTER → 2023-11-10 12:15 | Outpatient (CLI) | payer OTHER, SELFPAY ==
[2023-11-10 15:49] LABS: Follicle Stimulating Hormone 1.24 mIU/mL
[2023-11-10 16:05] LABS: Estradiol, Total 16.8 pg/mL
== END ==
LOC: LAB 12:17
PROVIDERS: PCP Registered Nurse Diabetes Educator; Referring Provider Obstetrics & Gynecology; Visit Provider Obstetrics & Gynecology
DX: N95.9 Unspecified menopausal and perimenopausal disorder (principal)
CPT/HCPCS: 36415; 82670; 83001

== ENCOUNTER → 2023-12-21 08:40 | Outpatient (CLI) | payer OTHER, SELFPAY ==
[2023-12-21 09:21] LABS: Hematocrit 41.2 % (36-46); Mean Corpuscular Hemoglobin 31.5 PG (26-34); Mean Corpuscular Volume 92.8 fL (80-100); Platelet Count 308 X10^3/uL (150-400); Red Blood Cell Count 4.44 X10^6/uL (4.0-5.2); Red Cell Distribution Width 12.4 % (11.6-14.8); White Blood Cell Count 7.1 X10^3/uL (4.5-11.0)
[2023-12-21 09:45] LABS: Alanine Aminotransferase 25 IU/L (<35); Albumin 4.4 g/dL (3.5-5.0); Albumin Globulin Ratio 1.5 (1.0-2.8); Alkaline Phosphatase 40 U/L (38-126); Aspartate Aminotransferase 27 IU/L (14-36); BUN Creatinine Ratio 20.9 (6-22); Bilirubin Total 0.3 mg/dL (0.2-1.3); Blood Urea Nitrogen 19 mg/dL (7-17); Calcium 9.5 mg/dL (8.4-10.2); Carbon Dioxide 26 mmol/L (22-32); Chloride 107 mmol/L (98-107); Cholesterol 226 mg/dL (140-199); Estimated Glomerular Filt Rate > 60 mL/min (>60); Globulin 2.9 g/dL (1.7-4.1); Glucose 93 mg/dL (70-100); HDL Cholesterol 59 mg/dL (40-60); HEMOLYSIS < 15 (0-50); LDL Cholesterol Calculated 151 mg/dL (<100); Sodium 140 mmol/L (137-145); Total Protein 7.3 g/dL (6.3-8.2); Triglycerides 81 mg/dL (35-150)
[2023-12-21 10:04] LABS: Free T4, Direct Thyroxine 1.26 ng/dL (0.78-2.19)
[2023-12-21 10:18] LABS: Thyroid Stimulating Hormone 1.32 uIU/mL (0.47-4.68)
== END ==
PROVIDERS: PCP Registered Nurse Diabetes Educator; Referring Provider Registered Nurse Diabetes Educator; Visit Provider Registered Nurse Diabetes Educator
DX: Z00.00 Encounter for general adult medical examination without abnormal findings (principal)
CPT/HCPCS: 36415; 80053; 80061; 84439; 84443; 85027

== ENCOUNTER → 2023-12-24 16:53 | Outpatient (CLI) | payer OTHER, SELFPAY | PROVIDERS: PCP Registered Nurse Diabetes Educator; Visit Provider Registered Nurse Diabetes Educator | DX: N94.9 Unspecified condition associated with female genital organs and menstrual cycle (principal) | CPT/HCPCS: 87210; 87220 ==

== ENCOUNTER → 2024-08-01 09:33 | Outpatient (CLI) | payer OTHER, SELFPAY ==
--- NOTE | 2024-08-01 09:34 | DI.US.S_ITS ---
LIMITED ULTRASOUND OF LEFT BREAST: 08/01/2024 CLINICAL: Interval follow up left breast. Comparison is made to exams dated: 08/01/2024 mammogram, 07/20/2023 ultrasound, 07/20/2023 mammogram, 03/28/2022 ultrasound, 09/20/2021 ultrasound, and 09/20/2021 mammogram - [facility]. Color flow and real-time ultrasound of the left breast 2 o'clock region were performed. Dawson scale images of the real-time examination were reviewed. There is a 0.9 cm x 0.7 cm x 0.5 cm oval cyst with a smooth internal wall in the left breast at 2 o'clock posterior depth 7 cm from the nipple. This oval cyst is hypoechoic with posterior acoustic enhancement. This abnormality is not significantly changed and correlates to the reported pain and with mammography findings. Color flow imaging demonstrates that there is no vascularity present. IMPRESSION: BENIGN There is no sonographic evidence of malignancy. The 0.9 cm x 0.7 cm x 0.5 cm oval cyst in the left breast most likely is a complicated cyst and has demonstrated two years of stability which is consistent with a benign process. A 1 year screening mammogram is recommended. Findings and recommendations were conveyed to the patient during today's evaluation. This exam was interpreted at Station ID: [id number]. Electronically Signed By: Mitchel fullery/:08/01/2024 12:14:26 Entry: ka - 08/04/2024 09:21:50 ACR BI-RADS Category 2: Benign
--- NOTE | 2024-08-01 09:34 | DI.MG.S_ITS ---
BILATERAL DIGITAL DIAGNOSTIC MAMMOGRAM 3D/2D: 08/01/2024 CLINICAL: Short term follow up of the left breast, new right breast lump. Comparison is made to exams dated: 07/20/2023 mammogram and 09/20/2021 mammogram - [facility]. The breasts are heterogeneously dense, which may obscure small masses (category c / 51-75% glandular tissue). There is a possible oval focal asymmetry with an obscured margin in the left breast at 3 o'clock posterior depth. This is less prominent and decreased in size and correlates to the area of reported pain. No other significant masses, calcifications, or other findings are seen in either breast. IMPRESSION: INCOMPLETE: NEED ADDITIONAL IMAGING EVALUATION The possible oval focal asymmetry in the left breast remains indeterminate. An ultrasound is recommended for further evaluation and is scheduled to immediately follow this examination. There is no abnormality seen in the right breast to correspond with the area of clinical concern and palpable abnormality indicated by triangular marker in the posterior depth in the outer aspect, however, ultrasound is recommended for further evaluation and is scheduled to immediately follow this examination. Based on the Tyrer Cuzick model (a risk assessment model) the patient's lifetime risk is 14.9% and her 10 year risk is 2.3%. According to the ACR, ACS, and NCCN guidelines, an annual breast MRI exam along with mammogram is recommended if the patient's lifetime risk is 20% or greater. This exam was interpreted at Station ID: [id number]. NOTE: For mammograms, a report in lay terms will be sent to the patient. Approximately 15% of breast malignancies will not be visualized mammographically. In the management of a palpable breast mass, a negative mammogram must not discourage biopsy of a clinically suspicious lesion. Electronically Signed By: Mitchel Hollis M.D. aty/:08/01/2024 10:08:46 letter sent: Additional Imaging Needed ACR BI-RADS Category 0: Incomplete: Need Additional Imaging Evaluation
--- NOTE | 2024-08-01 10:45 | DI.US.S_ITS ---
LIMITED ULTRASOUND OF RIGHT BREAST: 08/01/2024 CLINICAL: Palpable right breast lump. Comparison is made to exams dated: 08/01/2024 mammogram, 07/20/2023 mammogram, and 09/20/2021 mammogram - [facility]. Color flow and real-time ultrasound of the right breast 9 o'clock region were performed. Dawson scale images of the real-time examination were reviewed. No significant abnormalities were seen sonographically in the right breast. IMPRESSION: NEGATIVE There is no sonographic evidence of malignancy. There is no abnormality seen in the right breast to correspond with the area of clinical concern and palpable abnormality which likely represent normal fibroglandular tissue, however, recommend clinical follow up for persistent or worsening symptoms, or development of any clinically suspicious findings. A 1 year screening mammogram is recommended. Findings and recommendations were conveyed to the patient during today's evaluation. This exam was interpreted at Station ID: [id number]. Electronically Signed By: Mitchel Hollis M.D. at/:08/01/2024 12:15:24 letter sent: Clinical Evaluation ACR BI-RADS Category 1: Negative
== END ==
LOC: MAMMO 09:33
PROVIDERS: PCP Family Medicine; Referring Provider Obstetrics & Gynecology; Visit Provider Obstetrics & Gynecology
DX: R92.2 Inconclusive mammogram (principal); N60.01 Solitary cyst of right breast; N60.02 Solitary cyst of left breast; N64.4 Mastodynia; R92.333 Mammographic heterogeneous density, bilateral breasts
CPT/HCPCS: 76642; 77066; G0279

== ENCOUNTER → 2024-09-06 11:05 | Outpatient (CLI) | payer OTHER, SELFPAY ==
[2024-09-06 11:42] LABS: Add Manual Diff / Slide Review NO; Basophils Absolute Auto 100 /uL (0-100); Basophils Percent Auto 0.8 % (0-2); Eosinophils Absolute Auto 100 /uL (0-450); Eosinophils Percent Auto 1.2 % (2-4); Hematocrit 38.9 % (36-46); Hemoglobin 13.2 g/dL (12.0-16.0); Lymphocytes Absolute Auto 2100 /uL (1100-4500); Mean Corpuscular Hemoglobin 31.5 PG (26-34); Mean Corpuscular Volume 92.5 fL (80-100); Monocytes Absolute Auto 400 /uL (0-900); Monocytes Percent Auto 6.1 % (3-14); Neutrophils Absolute Auto 4300 /uL (1500-7000); Neutrophils Percent Auto 61.9 % (50-75); Platelet Count 285 X10^3/uL (150-400); Red Cell Distribution Width 12.1 % (11.6-14.8); White Blood Cell Count 6.9 X10^3/uL (4.5-11.0)
[2024-09-06 12:03] LABS: HEMOLYSIS < 15 (0-50); Iron 111 ug/dL (37-170)
[2024-09-06 12:14] LABS: Percent Iron Saturation 37 % (15-50); Total Iron Binding Capacity 299 ug/dL (265-497); Transferrin 284 mg/dL (206-381)
[2024-09-06 12:19] LABS: Progesterone, Total 7.92 ng/mL
[2024-09-06 12:39] LABS: Ferritin 34 ng/mL (6-137)
[2024-09-09 13:08] LABS: Estriol <0.1 ng/mL (.)
== END ==
PROVIDERS: PCP Family Medicine; Referring Provider Naturopath; Visit Provider Naturopath
DX: I73.00 Raynaud's syndrome without gangrene (principal); F32.81 Premenstrual dysphoric disorder
CPT/HCPCS: 36415; 82677; 82728; 83540; 83550; 84144; 85025

== ENCOUNTER → 2024-10-13 15:52 | Outpatient (CLI) | payer OTHER, SELFPAY ==
[2024-10-13 17:01] LABS: Vitamin D 25 Hydroxy (D3) 24.8 ng/mL (30.0-100.0)
[2024-10-13 17:03] LABS: Free T4, Direct Thyroxine 0.99 ng/dL (0.78-2.19)
[2024-10-13 17:04] LABS: Follicle Stimulating Hormone 7.05 mIU/mL; Luteinizing Hormone 5.97 mIU/mL
[2024-10-13 17:16] LABS: Thyroid Stimulating Hormone 3.61 uIU/mL (0.47-4.68)
[2024-10-13 17:19] LABS: Estradiol, Total 36.8 pg/mL
[2024-10-13 17:53] LABS: Folate 5.1 ng/mL (2.76-20.0); Vitamin B12 824 pg/mL (239-931)
[2024-10-14 07:09] LABS: Sex Hormone Binding Globulin 63.1 nmol/L (24.6-122.0)
[2024-10-15 07:14] LABS: Dehydroepiandrosterone Sulfate 89.5 ug/dL (57.3-279.2)
[2024-10-24 05:09] LABS: Percent Free Testosterone 1.62 % (0.50-2.80); Testosterone Free 0.16 ng/dL (0.10-0.85); Testosterone Total 9.9 ng/dL (.)
== END ==
PROVIDERS: PCP Family Medicine; Referring Provider Naturopath; Visit Provider Naturopath
DX: F32.81 Premenstrual dysphoric disorder (principal)
CPT/HCPCS: 36415; 82306; 82607; 82627; 82670; 82746; 83001; 83002; 84270; 84402; 84403; 84439; 84443

== ENCOUNTER → 2024-10-15 15:24 | Outpatient (CLI) | payer OTHER, SELFPAY ==
[2024-10-17 11:36] LABS: Candida species Negative (Negative); Gardnerella vaginalis Negative (Negative); Trichomoas vaginalis Negative (Negative)
== END ==
PROVIDERS: PCP Family Medicine; Visit Provider Obstetrics & Gynecology
DX: N89.8 Other specified noninflammatory disorders of vagina (principal)
CPT/HCPCS: 87480; 87510; 87660

== ENCOUNTER → 2024-11-21 12:02 | Outpatient (CLI) | payer OTHER, SELFPAY ==
--- NOTE | 2024-11-21 12:04 | DI.US.S_ITS ---
PROCEDURE: US HERNIA INDICATIONS: BILATERAL INGUINAL INTERMITTENT PAIN TECHNIQUE: Real-time focused scanning was performed of the inguinal region, with image documentation. COMPARISON: None. FINDINGS: No inguinal hernias. No abnormalities are identified. IMPRESSION: No inguinal hernias are identified. Dictated by: Tho Ansari M.D. on 11/22/2024 at 14:20 Approved by: Tho Ansari M.D. on 11/22/2024 at 14:21
== END ==
PROVIDERS: PCP Family Medicine; Referring Provider Family Medicine; Visit Provider Family Medicine
DX: K40.20 Bilateral inguinal hernia, without obstruction or gangrene, not specified as recurrent (principal)
CPT/HCPCS: 76705

== ENCOUNTER → 2025-01-26 12:20 | Outpatient (CLI) | payer OTHER, SELFPAY ==
[2025-01-26 13:32] LABS: C-Reactive Protein Quant < 0.5 mg/dL (<1.0); Erythrocyte Sedimentation Rate 6 MM/HR (0-20)
[2025-01-26 13:40] LABS: Rheumatoid Factor < 8.6 IU/mL (<12.0)
== END ==
PROVIDERS: PCP Family Medicine; Referring Provider Family Medicine; Visit Provider Family Medicine
DX: M47.812 Spondylosis without myelopathy or radiculopathy, cervical region (principal); L40.0 Psoriasis vulgaris; M54.2 Cervicalgia; I73.00 Raynaud's syndrome without gangrene
CPT/HCPCS: 36415; 85651; 86038; 86140; 86200; 86430

== ENCOUNTER → 2025-02-02 14:35 | Outpatient (CLI) | payer OTHER, SELFPAY ==
[2025-02-04 14:40] LABS: Candida species Negative (Negative); Gardnerella vaginalis Negative (Negative); Trichomoas vaginalis Negative (Negative)
== END ==
PROVIDERS: PCP Family Medicine; Visit Provider Student in an Organized Health Care Education/Training Program
DX: N89.8 Other specified noninflammatory disorders of vagina (principal)
CPT/HCPCS: 87480; 87510; 87660

== ENCOUNTER → 2025-04-29 15:41 | Outpatient (CLI) | payer OTHER, SELFPAY ==
[2025-05-01 12:40] LABS: Trichomoas vaginalis Negative (Negative)
== END ==
PROVIDERS: PCP Family Medicine; Visit Provider Obstetrics & Gynecology
DX: N89.8 Other specified noninflammatory disorders of vagina (principal)
CPT/HCPCS: 81514; 87480; 87510; 87660